=== PATIENT | female | born 1965 | race Caucasian/White ===

== ENCOUNTER 2019-07-02 10:21 | Emergency (ER) | payer BC, SELFPAY ==
[2019-07-02 10:26] VITALS: BP 123/95; PULSE 74; RESP 18; TEMP 36.6; O2SAT 98
--- NOTE | 2019-07-02 10:30 | DI.RAD_ITS ---
EXAM: XR KNEE LT 3V AP,LAT,MARY INDICATION: left knee pain for 2 months over medial aspect. COMPARISON: No exams were available for comparison TECHNIQUE: 2D digital imaging was performed. FINDINGS: Prominent spurring from the femoral condyles, tibial plateaus as well as patellofemoral joint. Femor al tibial joint spaces are well maintained. No joint effusion is visible. The patellofemoral joint is not ideally profiled. IMPRESSION: Prominent periarticular spurring. DATA REPOSITORY: RADIATION DOSE DELIVERED:
[2019-07-02] MEDS: Lidocaine 5% Patch 1 PATCH TP (11:03)
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
== END 2019-07-02 11:45 | disposition home or self-care (01) ==
PROVIDERS: Emergency Provider Student in an Organized Health Care Education/Training Program
DX: M25.562 Pain in left knee (principal); M25.762 Osteophyte, left knee; M70.52 Other bursitis of knee, left knee; I10 Essential (primary) hypertension; R73.03 Prediabetes
CPT/HCPCS: 73562; 99283; E0114